=== PATIENT | female | born 1940 ===

== ENCOUNTER 2025-02-21 09:54 | Outpatient (AMB) | payer OTHER, SELFPAY ==
--- NOTE | 2025-02-21 10:00 | MHC.OFFVIS ---
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 She is presenting for a neurology follow-up visit. She reports experiencing shortness of breath when she rushes, and her brother noted that she needed to stop three times while walking into the building for the appointment. She has a history of lung cancer, for which she underwent a partial lung removal. Regarding her cognitive status, the patient notes that her long-term memory is good, but she acknowledges having poor short-term memory which she tends to ignore. Her medications have not changed and she is reportedly stable on them. Review of Systems Narrative - Respiratory: Reports shortness of breath when rushing. - Neurological: Reports good long-term memory but poor short-term memory. - Psychiatric: Reports a take it and leave it mood. - Genitourinary: Reports good bladder control. - Constitutional: Denies significant pain. - Psychological: Denies hallucinations. - Sleep: Reports sleeping fairly well. Physical Exam Neuro Other: Mental Status: Alert and oriented to person, place, and time. Normal attention. Normal spontaneous speech, fluency, and comprehension. Cranial Nerves: CN II: Visual agray full to confrontation, visual acuity intact. CN III, IV, : Pupils equal, round, reactive to light and accommodation. Extraocular movements are normal. CN V: Facial sensation is normal. CN VII: Facial movements symmetrical. CN VIII: Hearing intact to bedside conversation is normal. CN IX, X: Palate elevates symmetrically. CN XI: Shoulder shrug and head turn symmetrical. CN XII: Tongue midline without atrophy or fasciculations. Extrapyramidal: Full facial expressions and blinking. No rigidity. Movements are appropriate with no tremor or abnormality. Speech: Normal; no dysarthria or tremor. Assessment & Plan Assessment & Plan (1) Alzheimer dementia: Comment: CT brain WO at [facility] in Jun 2023: Mod atrophy, mod MVD MRI brain WO at [facility] in Apr 2023: Same as CT. Code(s): G30.9 - Alzheimer's disease, unspecified; F02.80 - Dementia in other diseases classified elsewhere, unspecified severity, without behavioral disturbance, psychotic disturbance, mood disturbance, and anxiety Category: Medical Qualifiers: Alzheimer's disease onset: late onset Dementia severity: moderate Dementia behavioral or psychological symptom: with anxiety Qualified Code(s): G30.1 - Alzheimer's disease with late onset; F02.B4 - Dementia in other diseases classified elsewhere, moderate, with anxiety Plan Impression: Alzheimer disease, mild to moderate, with anxiety Rec: a: Donepezil 10mg daily b: Memantine 10mg bid c: Sertraline 50mg in am d: Stay socially and physically active I informed the patient and her brother that she appears stable on her current medications, and we will continue with this regimen. I will proceed with renewing her three prescriptions. I advised them to monitor for any new signs of agitation or hallucinations and to contact me if these symptoms arise. Regarding her dyspnea, I recommended that she take her time with activities. A follow-up visit was recommended in six months. Medications: New memantine 10 mg PO BID 180 tabs 1RF sertraline 50 mg PO DAILY 90 tabs 1RF donepezil 10 mg PO BEDTIME 90 tabs 1RF Coding Level of Care Code Est Pt Level 4 (63604) Diagnoses Moderate late onset Alzheimer's dementia with anxiety G30.1; F02.B4 Alzheimer's disease onset: late onset Dementia severity: moderate Dementia behavioral or psychological symptom: with anxiety
== END 2025-02-21 10:09 | disposition home or self-care (01) ==
PROVIDERS: PCP Internal Medicine; Referring Provider Internal Medicine; Visit Provider Psychiatry & Neurology Neurology
DX: G30.1 Alzheimer's disease with late onset (principal); F02.B4 Dementia in other diseases classified elsewhere, moderate, with anxiety
CPT/HCPCS: 99214